=== PATIENT | male | born 1960 | race Caucasian/White ===

== ENCOUNTER 2016-05-22 00:09 | Inpatient (IN) | payer OTHER, MEDICAID ==
--- NOTE | 2016-05-22 13:10 | CPEKG ---
Heart Rate: 86 RR Interval: 698 P-R Interval: 184 QRSD Interval: 112 QT Interval: 404 QTC Interval: 484 P [place]: 38 QRS [place]: 15 T Wave [place]: 19 EKG Severity - ABNORMAL ECG - EKG Impression: SINUS RHYTHM EKG Impression: PAIRED VENTRICULAR PREMATURE COMPLEXES Electronically Signed By: Naveen Leslie 22-May-2016 16:48:54
--- NOTE | 2016-05-22 13:15 | PDCARPN ---
Cardiology Progress Note Chief Complaint: Tikosyn loading Assessment/Plan: Assessment/Plan: The patient has a history of PVC's and NSVT. Prior cath showed nonobstructive CAD with NICMP and EF of 38% by MUGA. Pt is admitted for Tikosyn loading with 500mcg BID. Will monitor on tele and get routine labs and EKG's. 05/22/16 13:57 Subjective: Pt denies any CP or palpitations at this time. Result Diagrams: 05/22/16 13:30 05/22/16 13:30 - Physical Exam Constitutional: WDWN Cardiovascular: regular rate and rhythm Respiratory: clear to auscultate bilat, no crackles, no wheezes Skin: no edema Neurologic: AAOx3 ICD10 Worksheet Patient Problems: Problems Problem Status Diagnosed Diaphoresis Acute Elevated troponin Acute Cellulitis and abscess of buttock Acute MRSA (methicillin resistant Staphylococcus aureus) Acute 10/30/15
[2016-05-22] MEDS: DOFETILIDE 0.25 MG CAP PO SCH ×2 (13:20→22:33)
[2016-05-22] MEDS ORDERED: ACETAMINOPHEN 325 MG TAB PO PRN (13:32)
[2016-05-22 13:56] LABS: % IMMATURE GRANULYOCYTES 0.2 % (0.0-1.1); ABSOLUTE IMMATURE GRANULOCYTES 0.01 10^3/uL (0.00-0.10); ADD DIFF? NO; ADD MORPH? NO; ADD SCAN? NO; ATYPICAL LYMPHOCYTE FLAG 10 (0-99); FRAGMENT RBC FLAG 0 (0-99); HEMATOCRIT 44.2 % (40.0-51.0); HEMOGLOBIN 15.2 g/dL (13.7-17.5); LEFT SHIFT FLG 0 (0-99); LIPEMIA HEMOLYSIS FLAG 90 (0-99); MEAN CELL HEMOGLOBIN 31.3 pg (27.9-34.1); MEAN CELL HEMOGLOBIN CONCENTR. 34.4 g/dL (32.4-36.7); MEAN CELL VOLUME 90.9 fL (81.5-99.8); MEAN PLATELET VOLUME 11.5 fL (8.7-11.7); PLATELET CLUMPS FLAG 0 (0-99); PLATELET COUNT 151 10^3/uL (150-400); RED BLOOD CELL COUNT 4.86 10^6/uL (4.40-6.38); RED CELL DISTRIBUTION WIDTH 13.3 % (11.5-15.2)
[2016-05-22 14:07] LABS: INR 1.17 (0.83-1.16); PROTIME(PATIENT) 14.9 SEC (12.0-15.0)
[2016-05-22 14:16] LABS: ANION GAP 10 mEq/L (8-16); CALCIUM 8.8 mg/dL (8.5-10.4); CARBON DIOXIDE 28 mEq/l (22-31); CHLORIDE 104 mEq/L (97-110); CREATININE 0.8 mg/dL (0.7-1.3); GLOMERULAR FILTRATION RATE > 60; GLUCOSE 109 mg/dL (70-100); MAGNESIUM 1.9 mg/dL (1.6-2.3); POTASSIUM 4.3 mEq/L (3.5-5.2); SODIUM 142 mEq/L (134-144)
[2016-05-22 14:49] LABS: TESTOSTERONE TOTAL 761 ng/dL (71.8-623)
--- NOTE | 2016-05-22 15:38 | CPEKG ---
Heart Rate: 55 RR Interval: 1091 P-R Interval: 184 QRSD Interval: 116 QT Interval: 468 QTC Interval: 448 P [place]: 12 QRS [place]: 13 T Wave [place]: 29 EKG Severity - ABNORMAL ECG - EKG Impression: SINUS RHYTHM EKG Impression: VENTRICULAR PREMATURE COMPLEX EKG Impression: NONSPECIFIC INTRAVENTRICULAR CONDUCTION DELAY Electronically Signed By: Naveen Leslie 22-May-2016 16:48:25
[2016-05-22] MEDS: GABAPENTIN 300 MG CAP PO SCH ×2 (17:12→22:32)
[2016-05-22] MEDS: oxyCODONE IR 15 MG TAB PO PRN (17:12)
[2016-05-22] MEDS: CARVEDILOL 3.125 MG TAB PO SCH (17:13)
[2016-05-22] MEDS: ASPIRIN 81 MG CHEWABLE TAB PO SCH (22:32)
[2016-05-22] MEDS: LOSARTAN POTASSIUM 25 MG TAB PO SCH (22:33)
[2016-05-22] MEDS: tiZANidine HCL 2 MG TAB PO SCH (22:34)
[2016-05-22] MEDS: FLUTICASONE NASAL 120 SPRAYS/16 GM MDI EACHNARE SCH (22:36)
--- NOTE | 2016-05-23 00:47 | CPEKG ---
Heart Rate: 52 RR Interval: 1154 P-R Interval: 212 QRSD Interval: 116 QT Interval: 472 QTC Interval: 439 P [place]: 52 QRS [place]: 3 T Wave [place]: 9 EKG Severity - ABNORMAL ECG - EKG Impression: SINUS RHYTHM EKG Impression: MULTIFORM VENTRICULAR PREMATURE COMPLEXES EKG Impression: FIRST DEGREE AV BLOCK EKG Impression: NONSPECIFIC INTRAVENTRICULAR CONDUCTION DELAY Electronically Signed By: Naveen Leslie 23-May-2016 17:01:26
[2016-05-23 05:12] LABS: ANION GAP 10 mEq/L (8-16); CALCIUM 8.7 mg/dL (8.5-10.4); CARBON DIOXIDE 28 mEq/l (22-31); CHLORIDE 105 mEq/L (97-110); CREATININE 0.8 mg/dL (0.7-1.3); GLOMERULAR FILTRATION RATE > 60; GLUCOSE 77 mg/dL (70-100); MAGNESIUM 1.9 mg/dL (1.6-2.3); POTASSIUM 4.1 mEq/L (3.5-5.2); SODIUM 143 mEq/L (134-144)
[2016-05-23 05:17] LABS: INR 1.19 (0.83-1.16); PROTIME(PATIENT) 15.1 SEC (12.0-15.0)
[2016-05-23] MEDS: DOFETILIDE 0.25 MG CAP PO SCH ×2 (08:58→21:00)
[2016-05-23] MEDS: ATORVASTATIN CALCIUM 10 MG TAB PO SCH (08:59)
[2016-05-23] MEDS: MULTIVITAMINS 1 EACH TAB PO SCH (08:59)
[2016-05-23] MEDS: OMEGA-3 FATTY ACIDS 1,000 MG CAP PO SCH (08:59)
[2016-05-23] MEDS: GABAPENTIN 300 MG CAP PO SCH ×3 (08:59→21:01)
[2016-05-23] MEDS: CARVEDILOL 3.125 MG TAB PO SCH ×2 (09:00→17:19)
[2016-05-23] MEDS ORDERED: PNEUMOCOCCAL 0.5ML VACCINE VIAL IM ONE (09:00)
[2016-05-23] MEDS: DULoxetine 60 MG CAP PO SCH (09:02)
[2016-05-23] MEDS: oxyCODONE IR 15 MG TAB PO PRN (10:10)
--- NOTE | 2016-05-23 11:08 | CPEKG ---
Heart Rate: 57 RR Interval: 1053 P-R Interval: 196 QRSD Interval: 122 QT Interval: 500 QTC Interval: 487 P [place]: 44 QRS [place]: 4 T Wave [place]: 24 EKG Severity - ABNORMAL ECG - EKG Impression: SINUS RHYTHM EKG Impression: NONSPECIFIC INTRAVENTRICULAR CONDUCTION DELAY Electronically Signed By: Naveen Leslie 23-May-2016 17:01:10
--- NOTE | 2016-05-23 11:21 | PDCARPN ---
Cardiology Progress Note Assessment/Plan: Nonischemic Cardiomyopathy- stable without evidence of significant volume overload. Very Frequent PVCs/Non-sustained VT- potentially the cause of his cardiomyopathy ; no NSVT overnight since starting Tikosyn. Has had 3 doses so far. QTc 487 this a.m. Home after 5th dose if no proarrhythmia or QT prolongation. Coronary Artery Disease- continues on ASA, beta ras, and a statin. 05/23/16 11:25 Subjective: No complaints. Objective: Vital Signs (8 Hrs) Temp Pulse Resp BP Pulse Ox 05/23/16 09:35 36.7 C 54 L 14 117/93 H 92 05/23/16 09:00 60 117/93 H 05/23/16 04:00 36.5 C 48 L 18 119/81 H 96 Intake/Output (24 Hrs) 05/22/16 05/23/16 05/24/16 05:59 05:59 05:59 Intake Total 1550 Balance 1550 Intake: Oral (ml) 1550 Other: Weight 128.5 kg Intake Quantity Yes Sufficient Number of Voids Toilet 1 Result Diagrams: 05/22/16 13:30 05/23/16 03:48 - Physical Exam Constitutional: no apparent distress Eyes: anicteric sclera Ears, Nose, Mouth, Throat: moist mucous membranes Cardiovascular: regular rate and rhythm Respiratory: clear to auscultate bilat Gastrointestinal: normoactive bowel sounds, no masses Skin: no rashes, no edema Neurologic: AAOx3 Psychiatric: interactive, not anxious ICD10 Worksheet Patient Problems: Problems Problem Status Diagnosed Diaphoresis Acute Elevated troponin Acute Cellulitis and abscess of buttock Acute MRSA (methicillin resistant Staphylococcus aureus) Acute 10/30/15
[2016-05-23] MEDS ORDERED: fentaNYL 50 MCG PATCH TD SCH (12:00)
[2016-05-23] MEDS ORDERED: fentaNYL 12 MCG PATCH TD SCH (12:00)
[2016-05-23] MEDS: tiZANidine HCL 2 MG TAB PO SCH (21:00)
[2016-05-23] MEDS: LOSARTAN POTASSIUM 25 MG TAB PO SCH (21:01)
[2016-05-23] MEDS: ASPIRIN 81 MG CHEWABLE TAB PO SCH (21:01)
[2016-05-23] MEDS: FLUTICASONE NASAL 120 SPRAYS/16 GM MDI EACHNARE SCH (21:02)
--- NOTE | 2016-05-23 23:21 | CPEKG ---
Heart Rate: 56 RR Interval: 1071 P-R Interval: 196 QRSD Interval: 120 QT Interval: 492 QTC Interval: 475 P [place]: 28 QRS [place]: 7 T Wave [place]: 16 EKG Severity - ABNORMAL ECG - EKG Impression: SINUS RHYTHM EKG Impression: ATRIAL PREMATURE COMPLEX EKG Impression: NONSPECIFIC INTRAVENTRICULAR CONDUCTION DELAY EKG Impression: prolonged QTc interval Electronically Signed By: Naveen Leslie 24-May-2016 17:39:47
[2016-05-24] MEDS ORDERED: DOFETILIDE 0.25 MG CAP PO SCH
[2016-05-24] MEDS: DOFETILIDE 0.25 MG CAP PO SCH (09:07)
[2016-05-24 09:25] VITALS: TEMP 97.7
[2016-05-24] MEDS: ATORVASTATIN CALCIUM 10 MG TAB PO SCH (10:09)
[2016-05-24] MEDS: OMEGA-3 FATTY ACIDS 1,000 MG CAP PO SCH ×2 (10:09→10:10)
[2016-05-24] MEDS: DULoxetine 60 MG CAP PO SCH (10:12)
[2016-05-24] MEDS: GABAPENTIN 300 MG CAP PO SCH (10:12)
[2016-05-24] MEDS: MULTIVITAMINS 1 EACH TAB PO SCH (10:12)
[2016-05-24] MEDS: CARVEDILOL 3.125 MG TAB PO SCH (10:12)
--- NOTE | 2016-05-24 10:38 | GDS ---
[f rep st] DISCHARGE SUMMARY REASON FOR ADMISSION: Frequent PVCs and episodes of nonsustained ventricular tachycardia with a plan for Tikosyn loading. HOSPITAL COURSE: Please refer to Dr. Que Mistry's recent office note, which serves as the admissio n history and physical for this hospital encounter. Briefly, the patient is a 55-year-old male who h as a history of coronary ectasia and non-flow limiting atherosclerosis. He also has a history of non ischemic cardiomyopathy with a recent ejection fraction measured by MUGA at 38%. In the clinic, he w as noted to have frequent PVCs. A 24-hour Holter monitor was obtained which demonstrated over 19,000 PVCs per day, including runs of nonsustained ventricular tachycardia up to 9 beats in length. He wa s seen in consultation by Dr. Mistry, who felt like the patient was a poor candidate for amiodarone giv en his young age. He also felt that an electrophysiology study and ablation procedure was not indica viry because of the multifocal nature of his PVCs. Therefore, he was admitted to undergo Tikosyn load ing. He came into the hospital on May 22. The standard protocol for loading Tikosyn at 500 mc g twice daily with laboratory studies and serial EKGs was instituted. During the patient's time in [facility], he did not demonstrate any runs of nonsustained ventricular tachycardia and had a qualit ative decrease in his PVCs. Today, he is stable and ready for discharge. RECOMMENDATIONS AND DISPOSITION: The patient is discharged in stable condition. Please refer to the medication reconciliation section of the electronic record for details regarding his medications. T he only change to his medication regimen is the addition of his Tikosyn. The patient should continue on a heart healthy diet. Physical exercise is recommended, but he is significantly limited in this capacity secondary to his ankylosing spondylitis. He has followup with me on May 31 at 11:30. DISCHARGE DIAGNOSES: 1. Nonischemic cardiomyopathy. 2. Frequent premature ventricular contractions and runs of nonsustained ventricular tachycardia. /[id number]/MODL
--- NOTE | 2016-05-24 11:06 | CPEKG ---
Heart Rate: 57 RR Interval: 1053 P-R Interval: 184 QRSD Interval: 114 QT Interval: 492 QTC Interval: 479 P [place]: 16 QRS [place]: 29 T Wave [place]: -14 EKG Severity - ABNORMAL ECG - EKG Impression: SINUS RHYTHM EKG Impression: NONSPECIFIC INTRAVENTRICULAR CONDUCTION DELAY EKG Impression: prolonged QTc interval Electronically Signed By: Naveen Leslie 24-May-2016 17:39:18
[2016-05-24 13:31] VITALS: BP 151/87; PULSE 48; RESP 16; O2SAT 94
== END 2016-05-24 14:10 | disposition home or self-care (01) | DRG 309 ==
LOC: INTOOBSV 12:32 → F2W 12:32 → OBSVTOIN 05-23 11:16
PROVIDERS: ADMIT Internal Medicine Cardiovascular Disease; ATTEND Internal Medicine Interventional Cardiology
DX: I47.2 Ventricular tachycardia (principal); I42.9 Cardiomyopathy, unspecified; I25.10 Atherosclerotic heart disease of native coronary artery without angina pectoris; Z23 Encounter for immunization
CPT/HCPCS: G0009; G0103; G0378; G0379

== ENCOUNTER → 2016-06-14 | Outpatient (CLI) | payer OTHER, MEDICAID | LOC: BHFA 15:30 | PROVIDERS: ATTEND Internal Medicine Cardiovascular Disease | DX: I49.3 Ventricular premature depolarization (principal); I25.10 Atherosclerotic heart disease of native coronary artery without angina pectoris; I42.9 Cardiomyopathy, unspecified ==

== ENCOUNTER → 2016-06-26 | Outpatient (CLI) | payer OTHER, MEDICAID | LOC: BHFA 11:00 | PROVIDERS: ATTEND Internal Medicine Cardiovascular Disease | DX: I49.3 Ventricular premature depolarization (principal) ==

== ENCOUNTER 2016-07-24 11:24 | Observation (INO) | payer OTHER, MEDICAID ==
[2016-07-24] MEDS ORDERED: NS 1,000 ML IV ONE (11:35)
[2016-07-24] MEDS ORDERED: MIDAZOLAM 2 MG/2 ML VIAL IVP ONE (11:35)
[2016-07-24] MEDS ORDERED: ISOPROTERENOL HCL 0.2 MG/ML 5ML AMP ONE (11:51)
[2016-07-24] MEDS ORDERED: LIDOCAINE 1% 30 ML SDV ONE (11:51)
[2016-07-24] MEDS ORDERED: HEPARIN 10,000 UNIT/10 ML MDV ONE ×2 (11:51→16:43)
[2016-07-24] MEDS ORDERED: BUPIVACAINE 0.5% 30 ML SDV ONE (11:52)
[2016-07-24] MEDS ORDERED: HEPARIN/DEXTROSE 25,000 UNIT/500 ML BAG IV ONE (12:03)
--- NOTE | 2016-07-24 12:09 | CPEKG ---
Heart Rate: 62 RR Interval: 968 P-R Interval: 188 QRSD Interval: 118 QT Interval: 436 QTC Interval: 443 P [place]: 49 QRS [place]: 12 T Wave [place]: 24 EKG Severity - ABNORMAL ECG - EKG Impression: SINUS RHYTHM EKG Impression: NONSPECIFIC INTRAVENTRICULAR CONDUCTION DELAY Electronically Signed By: Fer Salmeron 25-Jul-2016 16:41:48
[2016-07-24] MEDS ORDERED: DEXAMETHASONE 4 MG/ML VIAL ONE (12:15)
[2016-07-24] MEDS ORDERED: ONDANSETRON 4 MG/2 ML VIAL ONE (12:15)
[2016-07-24] MEDS ORDERED: ROCURONIUM 100 MG/10 ML VIAL ONE ×3 (12:15→14:42)
[2016-07-24] MEDS ORDERED: fentaNYL 100 MCG/2 ML INJ ONE ×2 (12:16→18:58)
[2016-07-24] MEDS ORDERED: PROPOFOL 200 MG/20 ML VIAL ONE (12:16)
[2016-07-24 12:30] LABS: % IMMATURE GRANULYOCYTES 0.4 % (0.0-1.1); ABSOLUTE IMMATURE GRANULOCYTES 0.02 10^3/uL (0.00-0.10); ADD DIFF? NO; ADD MORPH? NO; ADD SCAN? NO; ATYPICAL LYMPHOCYTE FLAG 10 (0-99); FRAGMENT RBC FLAG 0 (0-99); HEMATOCRIT 48.7 % (40.0-51.0); HEMOGLOBIN 16.5 g/dL (13.7-17.5); LEFT SHIFT FLG 0 (0-99); LIPEMIA HEMOLYSIS FLAG 90 (0-99); MEAN CELL HEMOGLOBIN 30.7 pg (27.9-34.1); MEAN CELL HEMOGLOBIN CONCENTR. 33.9 g/dL (32.4-36.7); MEAN CELL VOLUME 90.7 fL (81.5-99.8); MEAN PLATELET VOLUME 11.3 fL (8.7-11.7); PLATELET CLUMPS FLAG 0 (0-99); PLATELET COUNT 148 10^3/uL (150-400); RED BLOOD CELL COUNT 5.37 10^6/uL (4.40-6.38); RED CELL DISTRIBUTION WIDTH 13.2 % (11.5-15.2)
[2016-07-24 12:41] LABS: INR 1.14 (0.83-1.16); PROTIME(PATIENT) 14.5 SEC (12.0-15.0)
[2016-07-24 12:43] LABS: APTT 43.9 SEC (23.0-38.0)
[2016-07-24 12:58] LABS: ANION GAP 10 mEq/L (8-16); CALCIUM 9.1 mg/dL (8.5-10.4); CARBON DIOXIDE 26 mEq/l (22-31); CHLORIDE 107 mEq/L (97-110); CREATININE 0.8 mg/dL (0.7-1.3); GLOMERULAR FILTRATION RATE > 60; GLUCOSE 110 mg/dL (70-100); SODIUM 143 mEq/L (134-144)
[2016-07-24] MEDS ORDERED: IOPAMIDOL (ISOVUE-300) 100 ML BTL IV ONE ×2 (13:54→14:15)
[2016-07-24] MEDS ORDERED: epHEDrine SULFATE 10 MG/ML SYR ONE ×4 (14:23→18:20)
[2016-07-24] MEDS ORDERED: ROCURONIUM 50 MG/5 ML VIAL ONE ×2 (17:27)
[2016-07-24] MEDS ORDERED: SUGAMMADEX SODIUM 200 MG/2 ML VIAL IVP ONE ×2 (18:54)
[2016-07-24] MEDS ORDERED: MIDAZOLAM 2 MG/2 ML VIAL ONE (19:03)
[2016-07-24] MEDS ORDERED: Diclofenac Sodium [Voltaren Gel (*)] 1 APP TP PRN (20:46)
[2016-07-24] MEDS ORDERED: fentaNYL 12 MCG PATCH TD SCH (20:50)
[2016-07-24] MEDS ORDERED: fentaNYL 50 MCG PATCH TD SCH (20:51)
[2016-07-24] MEDS ORDERED: FLUTICASONE NASAL 120 SPRAYS/16 GM MDI EACHNARE SCH (21:00)
[2016-07-24] MEDS ORDERED: ASPIRIN 81 MG CHEWABLE TAB PO SCH (21:00)
[2016-07-24] MEDS ORDERED: LOSARTAN POTASSIUM 25 MG TAB PO SCH (21:00)
[2016-07-24] MEDS ORDERED: ATORVASTATIN CALCIUM 10 MG TAB PO SCH (21:00)
[2016-07-24] MEDS ORDERED: tiZANidine HCL 2 MG TAB PO SCH (21:00)
[2016-07-24] MEDS: DOFETILIDE 0.25 MG CAP PO SCH (23:04)
[2016-07-24] MEDS: CARVEDILOL 3.125 MG TAB PO SCH (23:04)
[2016-07-24] MEDS: GABAPENTIN 300 MG CAP PO SCH (23:09)
[2016-07-25] MEDS ORDERED: ENOXAPARIN 100 MG/ML SYR SC ONE (04:30)
[2016-07-25] MEDS: CARVEDILOL 3.125 MG TAB PO SCH (08:25)
[2016-07-25] MEDS: GABAPENTIN 300 MG CAP PO SCH (08:25)
[2016-07-25] MEDS: DOFETILIDE 0.25 MG CAP PO SCH (08:25)
[2016-07-25] MEDS ORDERED: OMEGA-3 FATTY ACIDS 1,000 MG CAP PO SCH (09:00)
[2016-07-25] MEDS ORDERED: MULTIVITAMINS 1 EACH TAB PO SCH (09:00)
[2016-07-25] MEDS ORDERED: DULoxetine 60 MG CAP PO SCH (09:00)
[2016-07-25] MEDS ORDERED: TESTOSTERONE TP SCH (09:00)
--- NOTE | 2016-07-25 11:49 | CPEKG ---
Heart Rate: 54 RR Interval: 1111 P-R Interval: 184 QRSD Interval: 108 QT Interval: 432 QTC Interval: 410 P [place]: 14 QRS [place]: 14 T Wave [place]: 38 EKG Severity - NORMAL ECG - EKG Impression: SINUS RHYTHM Electronically Signed By: Fer Salmeron 26-Jul-2016 08:59:07
[2016-07-25 12:28] VITALS: TEMP 99
[2016-07-25 12:33] VITALS: RESP 15
--- NOTE | 2016-07-25 13:35 | ECHO ---
[id number] + + [address] : : [place] [address] : : [phone] + + Adult Echocardiographic Report + -------+ :Name: HAIDER KIRKLAND MStudy Date: 07/25/2016 09:51 AM : : Hospital Admission Number: [id number] Locati on: 246: :: 1960 Gender: Male Height: 76 in : :Age: 55 yrs Race: WH Weight: 289 lb : :Reason For Study: Eval LV Fx : : BSA: 2.6 meter s2 : :History: Post EP : + -------+ MMode/2D Measurements \T\ Calculations IVSd: 1.4 cm LVIDd: 5.5 cm FS: 29.5 % Ao root diam: LVPWd: 1.4 cm LVIDs: 3.9 cm EDV(Teich): 4.3 cm 149.0 ml ACS: 2.2 cm ESV(Teich): 65.8 ml EF(Teich): 55.9 % LVLd ap4: 9.8 cm SV(MOD-sp4): EDV(MOD-sp4): 91.0 ml 193.0 ml LVLs ap4: 8.9 cm ESV(MOD-sp4): 102.0 ml EF(MOD-sp4): 47.2 % Normal Measurement Values: + + :LVIDd (3.5-5.7cm) IVSd (0.6-1.1cm) LVPWd (0.6-1.1cm) Aortic Root (2.0-3.7cm)Left Atrium (1.5-4.0cm): :LV Vol(d) (76-115ml) LV Vol(s) (29-48ml) Ejec Fraction (50-65%)PV Adria (0.6- 1.2m/s) TV Adria (0.4-1.0m/s) : :MV E Adria (0.8-1.0m/s)MV A Adria (0.3-1.0m/s)LVOT Adria (0.7-1.2m/s) Asc Ao Adria ( 0.9-1.8m/s) : + + Doppler Measurements \T\ Calculations MV E max adria: 71.6 cm/sec Ao V2 max: 150.7 cm/sec LV V1 max: 73.1 cm/sec MV A max adria: 38.5 cm/sec Ao max P.1 mmHg LV V1 max P.1 mmHg MV E/A: 1.9 Left Ventricle The left ventricle is normal in size. There is normal left ventricular wall thickness. There is Doppler evidence for diastolic dysfunction. There is basilar to mid inferolateral hypokinesis. Left ventricular systolic function is low normal. Right Ventricle The right ventricle is normal in size and function. Atria The left atrial size is normal. Right atrial size is normal. Mitral Valve The mitral valve is normal in structure and function. There is no mitral valve stenosis. There is no mitral regurgitation noted. Tricuspid Valve Normal tricuspid valve. There is trace tricuspid regurgitation. Aortic Valve The aortic valve is normal in structure and function. There is no aortic stenosis. There is no aortic insufficiency. Pulmonic Valve The pulmonic valve is normal in structure and function. There is no pulmonic valvular regurgitation. Great Vessels The aortic root is normal size. Pericardium/Pleural There is no pericardial effusion. Conclusion A complete two-dimensional transthoracic echocardiogram was performed (2D, M-mode, Doppler and color flow Doppler). There is Doppler evidence for diastolic dysfunction. There is basilar to mid inferolateral hypokinesis. The left atrial size is normal. There is trace tricuspid regurgitation. The aortic valve is normal in structure and function. There is no pericardial effusion. Left ventricular systolic function is low normal. Final Reading Physician: Nicolas Pollock, [place] signed on 07/25/2016 01:34 PM Ordering Physician: Que Mistry Performed By: Thony Ortiz, RDCS
--- NOTE | 2016-07-25 13:44 | GDS ---
[f rep st] DISCHARGE SUMMARY DISCHARGE DIAGNOSES: 1. Frequent premature ventricular contractions, status post premature ventricular contraction ablat ion where multiple foci were ablated. 2. Nonischemic cardiomyopathy with an ejection fraction of 38% by multiple-gated acquisition scan, possibly related to high premature ventricular contraction burden. 3. Asp-zntw-niubdzco coronary artery disease. HOSPITAL COURSE: For detailed H and P, please see prior dictation. Briefly, the patient is a 55-ye ar-old male with a history of nonischemic cardiomyopathy with ejection fraction of 38% by MUGA. He also has frequent PVCs, which may be the cause for his cardiomyopathy. He had a trial of Tikosyn bu t unfortunately, this had minimal impact on his PVC burden. Ultimately, the decision was made to pr oceed with EP study and ablation, which was performed by Dr. Que Mistry on 07/24/2016. The proced ure was uncomplicated. Multiple different foci for his PVCs were ablated. The following morning, t he patient denied any chest discomfort or palpitations. He was monitored on telemetry and had rare PVCs with 1 run of nonsustained ventricular tachycardia of 6 beats. This was at a rate of approxima tely 160-170 beats per minute. His EKG showed sinus bradycardia at a rate of [address] -T wave changes. There were no PVCs on his EKG. The preliminary results of his echo showed depress ed ejection fraction of 45% to 50% without any evidence of pericardial effusion. PHYSICAL EXAMINATION: GENERAL: Patient appears in no acute distress. VITALS: Blood pressure 131/ 82, heart rate 56, oxygen saturation of 95% on room air, afebrile. NECK: No carotid bruits or JVD present. LUNGS: Clear to auscultation. No wheezes, rhonchi, or crackles auscultated. CARDIAC: R egular rate and rhythm without any murmurs, rubs, or gallops appreciated. EXTREMITIES: Groin where access was obtained for the EP study and ablation is clean and intact without any evidence of hemat soledad or infection. He does have some ecchymosis. DISCHARGE MEDICATIONS: His Tikosyn has been discontinued, and he will begin Eliquis 5 mg b.i.d. for 4-6 weeks. He will continue aspirin 81 mg daily, Lipitor 10 mg daily, Coreg 3.125 mg b.i.d., Celeb avni 200 mg daily, Voltaren gel p.r.n., Cymbalta 60 mg daily, deicettu75 mcg patch q.2 days, fentanyl 50 mcg patch transdermal q.2 days, Flonase p.r.n., Neurontin 300 mg daily and 600 mg twice a day, l osartan 25 mg at bedtime, multivitamin daily, fish oil 1000 mg daily, oxycodone IR 30 mg p.o. q.4-6 hours p.r.n., testosterone daily, and Zanaflex 4 mg at bedtime. PLAN: The patient is currently stable and ready for discharge home. He has been given groin precau tions. He will need to call our office to schedule followup with Dr. Que Mistry in 1 month. /[id number]/MODL
[2016-07-25 14:45] VITALS: BP 138/59; PULSE 61; O2SAT 96
[2016-07-25] MEDS ORDERED: GABAPENTIN 300 MG CAP PO SCH (15:00)
--- NOTE | 2016-07-26 10:00 | EPPROC ---
Electrophysiology Procedure Note: ELECTROPHYSIOLOGIC STUDY AND CATHETER MEDIATED ABLATION OF PREMATURE VENTRICULAR BEATS ORIGINATING IN THE RIGHT VENTRICULAR OUTFLOW TRACT: Procedures performed: [id number] EP evaluation with RA/RV/LA pace/record, with arrhythmia induction [id number] EP evaluation with RA/RV pace record, insert/reposition catheter, with arrhythmia induction [id number] Intracardiac catheter ablation, VT arrhythmogenic focus Fluoroscopy INDICATION: Recurrent PVC, not controlled with BB or CCB or Tikosyn. Multiple morphologies. The patient arrived in the Electrophysiology Laboratory in the fasting state. The right clavicular region, right groin, and left groin area were prepped and draped in the usual sterile manner. Appropriate non-invasive blood pressure, pulse oximetry and end-tidal CO2 monitoring was established. Anesthesiologist administered propofol sedation. All catheters were placed percutaneously using the modified Seldinger technique , and advanced into position under fluoroscopic guidance. One decapolar catheter was palced in the RV via RFV. One # 8 Fr sheath was placed in the RFA for retrograde aortic access. Heparin was administered to keep ACT > 250 seconds. Programmed stimulation was performed from the right atrium, right ventricle and CS (left atrium). The patient arrived to the electrophysiology laboratory in normal sinus rhythm. With Isupril infusion when the rate was between 90 to 105bpm, PVCs were noted. There were PVCs which were positive in II, III and aVF with positive concordance in precordial leads. There were other PVCs which were positive in II, III and aVF, negative in V1-V4 and then positive in V5 and V6. A third morphology was that which were negative in II, II. PVC +1 and 2 were targeted for ablation. A 4 mm Nav[employer] ablation catheter with a magnetic sensor for the Carto 3D electroanatomic mapping system was used for mapping. Mapping (during PVC) of the right ventricular outflow tract, left ventricular outflow tract and LV base was performed. For PVC1, we observed an area in the LV area about 1 o' clock position. Multiple lesions were given. AFter this we targeted PVC #2. Mapping demonstrated PVCs comign from the RVOT free wall. Pacemapping obtained 96% match. Early signals about 35ms prior to onset of QRS were noted. Ablation at 20 W showed runs of VT which stopped once RF was turned off. Multiple lesions were given. Observation for 45 minutes after the application of radiofrequency current was performed during isoproterenol administration at graded doses upto 4 mcg/min, and following discontinuation of isoproterenol. Patient was recovered from anesthesia. PVC #3 were noted. No spontaneous ventricular extra systoles of the primary pattern seen prior to ablation were induced spontaneously or with ventricular burst pacing. The catheters were removed. The patient was transferred to the cardiovascular holding area in stable condition. Vascular access sheaths were removed in the holding area. There were no apparent complications. Results: * PVCs of three different morphologies noted. * PVCs were induced with Isupril when the HR increased to 90 to 105bpm. * Two morphologies targeted, one in the LV MV area in 1 o'clock position. Another in the RVOT free wall region. CONCLUSIONS: * Premature ventricular beats as mentioned above * Successful catheter mediated ablation of the premature ventricular beats. * No apparent complications. Patient Problems: Problems Problem Status Onset Cellulitis and abscess of buttock Acute Diaphoresis Acute Elevated troponin Acute MRSA (methicillin resistant Staphylococcus aureus) Acute 10/30/15
== END 2016-07-25 15:30 | disposition home or self-care (01) ==
LOC: FCATH 11:24 → F2W 15:58 → F2N 18:51
PROVIDERS: ADMIT Internal Medicine Cardiovascular Disease; ATTEND Internal Medicine Cardiovascular Disease
PROC: 025K3ZZ Destruction of Right Ventricle, Percutaneous Approach (ICD-10-PCS; principal; 2016-07-24)
PROC: 025L3ZZ Destruction of Left Ventricle, Percutaneous Approach (ICD-10-PCS; principal; 2016-07-24)
DX: I49.3 Ventricular premature depolarization (principal); I42.9 Cardiomyopathy, unspecified; I25.10 Atherosclerotic heart disease of native coronary artery without angina pectoris
CPT/HCPCS: 93005; 93306; 93623; 93654; C1730; C1732; J1100; J1644; J1650; J2250; J2405; J2704; J3010; Q9967

== ENCOUNTER → 2016-11-22 | Outpatient (CLI) | payer OTHER, MEDICAID | LOC: BHFA 13:30 | PROVIDERS: ATTEND Internal Medicine | DX: I49.3 Ventricular premature depolarization (principal) ==

== ENCOUNTER → 2017-08-27 | Outpatient (CLI) | payer OTHER, MEDICAID | LOC: FIMAGING 12:25 | PROVIDERS: ATTEND Orthopaedic Surgery | DX: M17.12 Unilateral primary osteoarthritis, left knee (principal); M25.462 Effusion, left knee ==

== ENCOUNTER 2017-09-10 09:33 | Inpatient (IN) | payer MEDICAID, OTHER ==
--- NOTE | 2017-09-10 07:12 | PDHPUP ---
History & Physical Update H&P update statement: This history and physical update is based on an assessment of the patient which was completed after admission or registration (within 24 hours), but prior to the surgery/procedure. H&P update: H&P reviewed & patient examined, no change in patient's condition since H&P completed
[~2017-09-10 09:33] MED LIST: ROPIVACAINE 0.2% 80 MG, EPINEPHrine 0.2 MG, KETOROLAC TROMETHAMINE 30 MG in SYRINGE 0 ML IU ONE; TRANEXAMIC ACID 3,000 MG in NS (SYRINGE) 50 ML IRR ONE; TRANEXAMIC ACID 3,000 MG/50 ML BAG IRR ONE; VANCOMYCIN 2 GM in D5W 500 ML IV ONE; VANCOMYCIN PHARMACY TO DOSE MISC ONE
[2017-09-10] MEDS ORDERED: ceFAZolin 2 GM/SWFI 2 GM/20 ML SYR IVP ONE (09:45)
[2017-09-10] MEDS ORDERED: DEXAMETHASONE 4 MG/ML VIAL IVP ONE (09:45)
[2017-09-10] MEDS ORDERED: ACETAMINOPHEN 325 MG TAB PO ONE (09:45)
[2017-09-10] MEDS ORDERED: FAMOTIDINE 20 MG TAB PO ONE (09:45)
[2017-09-10] MEDS ORDERED: LIDOCAINE 1% 2 ML INJ ID PRN (09:46)
[2017-09-10] MEDS ORDERED: LR 1,000 ML IV ONE (09:46)
--- NOTE | 2017-09-10 10:12 | PDANEPAE ---
ANE History of Present Illness 57 year old male with PMHx of ankylosing spondilytis, HTN, cardiac ablation ( for PVCs), HUNTER ad previous lumbar spine fusion presents for left total knee arthroplasty. ANE Past Medical History - Cardiovascular History Hx Hypertension: Yes Hx Arrhythmias: No Hx Chest Pain: No Hx Coronary Artery / Peripheral Vascular Disease: No Hx CHF / Valvular Disease: No Hx Palpitations: No Cardiovascular History Comment: Ablation for PVC's ~ 17 via [facility]. continues to have PVCs-less. Dr Darcy Mistry. - Pulmonary History Hx COPD: No Hx Asthma/Reactive Airway Disease: No Hx Recent Upper Respiratory Infection: No Hx Oxygen in Use at Home: No Hx Sleep Apnea: Yes Sleep Apnea Screening Result - Last Documented: Positive Pulmonary History Comment: HUNTER w/CPAP - Neurologic History Hx Cerebrovascular Accident: No Hx Seizures: No Hx Dementia: No - Endocrine History Hx Diabetes: No Hypothyroid: No Hyperthyroid: No Obesity: mild - Renal History Hx Renal Disorders: No - Liver History Hx Hepatic Disorders: No - Neurological & Psychiatric Hx Hx Neurological and Psychiatric Disorders: Yes Neurological / Psychiatric History Comment: low back pain due to ankylosing spindylitis- SI joint pain-Lower R. - Cancer History Hx Cancer: No - Congenital Disorder History Hx Congenital Disorders: No - GI History Hx Gastrointestinal Disorders: No Gastrointestinal History Comment: prone to constipation w/opiods - Other Health History Other Health History: OA,RA, Ankylosing spondylitis-affects low back, knees, wrists. iridis-well controlled. - Chronic Pain History Chronic Pain: Yes - Surgical History Prior Surgeries: L5/S1 lumbar fusion '10. bilat knee scopes ANE Review of Systems Review of systems is: negative Review of Systems: - Exercise capacity Exercise capacity: >=4 METS METS (RN): 4 METS ANE Patient History - Allergies Allergies/Adverse Reactions: aluminum [Aluminum] Allergy (Intermediate, Verified 09/10/17 09:59) Other-Enter Comments latex [Latex] Allergy (Mild, Verified 09/10/17 09:59) Itching Sulfa (Sulfonamide Antibiotics) Allergy (Unknown, Verified 09/10/17 09:59) Unknown AMMONIA Allergy (Intermediate, Uncoded 09/10/17 09:59) Other-Enter Comments DUST Allergy (Intermediate, Uncoded 09/10/17 09:59) Other-Enter Comments - Home Medications Home medications: home medication list seen and reviewed Home Medications: Fluticasone Nasal [Flonase Nasal [place]] 1 sprays EACHNARE HS 12/05/15 [Last Taken 07/23/16] Gabapentin [Neurontin 300 MG (*)] 300 mg PO DAILY@15 12/05/15 [Last Taken ] Testosterone [Androgel] 1 lisa TP DAILY 12/05/15 [Last Taken 07/23/16] fentaNYL [Duragesic 12 MCG Patch (*)] 12 mcg TD Q2D@12 12/05/15 [Last Taken ] Aspirin [Aspirin 81mg (*)] 81 mg PO HS 05/22/16 [Last Taken 07/23/16] Atorvastatin Calcium [Lipitor 10 mg (*)] 10 mg PO HS 05/22/16 [Last Taken ] DULoxetine [Cymbalta 60 MG (*)] 60 mg PO DAILY 05/22/16 [Last Taken 07/23/16] Gabapentin [Neurontin 300 MG (*)] 600 mg PO BID 05/22/16 [Last Taken 07/23/16 21 :00] Multivitamins [Multivitamin (*)] 1 each PO DAILY 05/22/16 [Last Taken 07/23/16] celeCOXIB [Celebrex (*)] 200 mg PO DAILY 05/22/16 [Last Taken 07/23/16] tiZANidine HCL [Zanaflex 2MG (*)] 4 mg PO HS 05/22/16 [Last Taken 07/23/16] Cosentyx Pen 1 ea SQ Q30D 08/26/17 [Last Taken Unknown] Metoprolol Tartrate [Lopressor 50 mg (*)] 50 mg PO BID 08/26/17 [Last Taken Unknown] Docusate Sodium [Colace 100 MG (*)] 100 mg PO DAILY PRN 08/27/17 [Last Taken Unknown] Herbals/Supplements -Info Only 1 ea PO DAILY 08/27/17 [Last Taken Unknown] Lidocaine 5% [Lidocaine 5% Oint] 1 lisa TP DAILY PRN 08/27/17 [Last Taken Unknown ] Losartan Potassium [Cozaar 50 mg (*)] 50 mg PO DAILY 08/27/17 [Last Taken Unknown] Melatonin 10 mg PO DAILY 08/27/17 [Last Taken 04/18/18] clonIDINE [Catapres (*)] 0.1 mg PO DAILY 08/27/17 [Last Taken Unknown] fentaNYL [Duragesic 25 MCG Patch (*)] 25 mcg TD Q2D@12 08/27/17 [Last Taken Unknown] oxyCODONE IR [Oxycodone Ir (*)] 20 mg PO Q4HRS PRN 08/27/17 [Last Taken Unknown] - NPO status NPO Status: no food or drink >8 hours - Anes Hx Anes Hx: no prior problems - Smoking Hx Smoking Status: Never smoked Marijuana use: No - Alcohol Use Alcohol Use: Rarely - Family Anes Hx Family Anes Hx: neg - N/A ANE Labs/Vital Signs - Vital Signs Vital Signs: reviewed preoperatively; see RN documention for details Height: 193.04 cm Weight: 136.078 kg ANE Physical Exam - Airway Neck exam: FROM Mallampati Score: Class 2 Mouth exam: normal dental/mouth exam, franks - Pulmonary Pulmonary: no respiratory distress - Cardiovascular Cardiovascular: regular rate and rhythym - ASA Status ASA Status: III ANE Anesthesia Plan Anesthesia Plan: general endotracheal anesthesia Regional Anesthesia: single shot NB, adductor canal FNB, POPC/PSR Total IV Anesthesia: No
[2017-09-10] MEDS ORDERED: MIDAZOLAM 2 MG/2 ML VIAL IVP ONE (10:52)
[2017-09-10] MEDS ORDERED: MIDAZOLAM 2 MG/2 ML VIAL ONE (10:52)
[2017-09-10] MEDS ORDERED: PROPOFOL/EMULSION 500 MG/50 ML BOTTLE IV ONE (10:56)
[2017-09-10] MEDS ORDERED: fentaNYL 100 MCG/2 ML INJ ONE ×3 (10:57→13:25)
[2017-09-10] MEDS ORDERED: LIDOCAINE 2% 5 ML SDV ONE (10:57)
[2017-09-10] MEDS ORDERED: ROCURONIUM 50 MG/5 ML VIAL ONE (10:57)
[2017-09-10] MEDS ORDERED: ROPIVACAINE HCL 150 MG/30 ML INJ ONE (11:41)
[2017-09-10] MEDS ORDERED: ONDANSETRON 4 MG/2 ML VIAL ONE (11:41)
[2017-09-10] MEDS ORDERED: DEXAMETHASONE 4 MG/ML VIAL ONE (11:41)
[2017-09-10] MEDS ORDERED: oxyCODONE IR 5 MG TAB PO PRN (11:43)
[2017-09-10] MEDS ORDERED: NALOXONE HCL 0.4 MG/ML INJ IVP PRN (11:43)
[2017-09-10] MEDS ORDERED: ACETAMINOPHEN 500 MG TAB PO PRN (11:43)
[2017-09-10] MEDS ORDERED: PROMETHAZINE HCL 25 MG/ML INJ IVP PRN ×2 (11:43→12:45)
[2017-09-10] MEDS ORDERED: LR 500 ML IV PRN (11:43)
[2017-09-10] MEDS ORDERED: DIAZEPAM 5 MG/ML 1 ML SYR IVP PRN (11:43)
[2017-09-10] MEDS ORDERED: HYDROmorphONE/DILAUDID 2 MG/ML INJ IVP PRN (11:43)
[2017-09-10] MEDS ORDERED: fentaNYL 100 MCG/2 ML INJ IVP PRN (11:43)
[2017-09-10] MEDS ORDERED: DEXAMETHASONE 4 MG/ML VIAL IVP PRN (11:43)
[2017-09-10] MEDS ORDERED: HYDROmorphONE/DILAUDID 2 MG/ML INJ ONE ×2 (11:46→13:25)
[2017-09-10] MEDS ORDERED: SUGAMMADEX SODIUM 200 MG/2 ML VIAL IVP ONE (12:32)
[2017-09-10] MEDS ORDERED: DIPHENOXYLATE/ATROPINE LOMOTIL 1 TAB PO PRN (12:45)
[2017-09-10] MEDS ORDERED: HYDROmorphONE/DILAUDID 4 MG TAB PO PRN (12:45)
[2017-09-10] MEDS ORDERED: ONDANSETRON DISINTEGRATING 4 MG TAB PO PRN (12:45)
[2017-09-10] MEDS ORDERED: MAGNESIUM HYDROXIDE 30 ML UDCUP PO PRN (12:45)
[2017-09-10] MEDS ORDERED: BISACODYL 10 MG SUPP PR PRN (12:45)
[2017-09-10] MEDS ORDERED: CYCLOBENZAPRINE 10 MG TAB PO PRN (12:45)
[2017-09-10] MEDS ORDERED: diphenhydrAMINE 25 MG CAP PO PRN (12:45)
[2017-09-10] MEDS ORDERED: METOCLOPRAMIDE 10 MG/2 ML VIAL IVP PRN (12:45)
[2017-09-10] MEDS ORDERED: POLYETHYLENE GLYCOL 3350 17 GM PKT PO PRN (12:45)
[2017-09-10] MEDS ORDERED: TEMAZEPAM 15 MG CAP PO PRN (12:45)
[2017-09-10] MEDS ORDERED: LACTULOSE 20 GM/30 ML UDCUP PO PRN (12:45)
[2017-09-10] MEDS ORDERED: PROMETHAZINE HCL 25 MG SUPPR PR PRN (12:45)
[2017-09-10] MEDS ORDERED: ONDANSETRON 4 MG/2 ML VIAL IVP PRN (12:45)
--- NOTE | 2017-09-10 12:51 | POSTOPPROG ---
Post Op Note Date of Operation: 09/10/17 Surgeon: Leda Flowers Immigration Manager: jeovanny flowers Anesthesiologist: dr. watson Anesthesia: GET(General Endotracheal), Other (Specify) (adductor canal block) Pre-op Diagnosis: left knee OA Post-op Diagnosis: same Indication: left knee pain Procedure: L TKA robot assisted Findings: severe knee OA and osteophytes Inf/Abcess present in the surg proc area at time of surgery?: No EBL: [id number]
[2017-09-10] MEDS ORDERED: LR 1,000 ML IV SCH (13:00)
--- NOTE | 2017-09-10 13:58 | POSTANESTH ---
Post Anesthetic Evaluation Cardiovascular Status: Normal, Stable, Similar to Pre-Op Cond Respiratory Status: Normal, Stable, Similar to Pre-op Cond. Level of Consciousness/Mental Status: Can Participate in Eval, Alert and Oriented Pain Control: Adequate, Prn Tx Ordered Nausea/Vomiting Control: Adequate, Prn Tx Ordered Complications Possibly Related to Anesthesia: None Noted
[2017-09-10] MEDS ORDERED: ceFAZolin 2 GM/DEXTROSE 100 ML IV SCH (14:00)
[2017-09-10] MEDS ORDERED: LOSARTAN POTASSIUM 50 MG TAB PO ONE (15:00)
--- NOTE | 2017-09-10 15:45 | PDMN ---
Medical Necessity Medical necessity: Pt meets IP criteria per PA; est los >2 mn s/p L TKA; admit for further monitoring, pain management, IVFs & therapies; hx AFIB & chronic pain; per H&P & order 09/10/17
[2017-09-10] MEDS: GABAPENTIN 300 MG CAP PO SCH ×2 (16:15→20:31)
--- NOTE | 2017-09-10 17:28 | GOP ---
[f rep st] OPERATIVE REPORT DATE OF OPERATION: 09/10/2017 SURGEON: Marck Stevens MD GAS OPERATION MANAGER: Sil Stevens, VANIA. ANESTHESIA: Spinal. PREOPERATIVE DIAGNOSIS: Left knee osteoarthritis. POSTOPERATIVE DIAGNOSIS: Left knee osteoarthritis. PROCEDURE PERFORMED: Left total knee arthroplasty with computer navigation, robotic assist. FINDINGS: ESTIMATED BLOOD LOSS: 100 cc. INDICATIONS: The patient is a 57-year-old male with severe and progressive pain and deformity of the left knee unresponsive to conservative care. The risks and benefits of surgical intervention were e xplained in detail. DESCRIPTION OF PROCEDURE: The patient was brought to the operative room and placed on the table in t he supine position. Spinal anesthesia was induced without difficulty. A pneumatic tourniquet was lisa lied about the left proximal thigh, and the leg was prepped and draped in a sterile fashion. The leg tse was applied. After exsanguination by elevation the tourniquet was inflated to 275 mmHg. Incision was made anterior medial from the tibial tuberosity to a point 2 cm proximal to the superior pole of the patella. Medial parapatellar arthrotomy was carried out from the superior pole of the p atella and posteriorly in line with the fibers of the Type II VMO. The medial collateral ligament wa s elevated and the infrapatellar fat pad was resected. The patella was everted and the articular surface was excised. A 40 mm patellar button was placed. Attention was turned first to the distal aspect of the femur. After exposure of the femur, 2 half pi ns were placed for fixation of the femoral array. In a similar fashion, 2 pins were placed anteromed ial on the tibia for fixation of the tibial array. External land marking and registration of the hip center was performed without difficulty. Internal femoral and tibial registration was carried out w ithout difficulty and the femoral and tibial checkpoints were placed and verified for accuracy. Attention was turned to the femur. The foot print for the size 6 femoral component was cut with the saw using the [employer] robotic system and verified for accuracy against the CT based plan. In a similar f ashion, the saw was used to cut the footprint for the size 7 tibial component using the [employer] system an d verified for accuracy against the CT based plan. The tibial articular surface was excised without difficulty, followed by the intercondylar box cut. The knee was extended and the remnants of the medial and lateral meniscus were excised. The posterio r capsule was injected with ropivacaine, epinephrine and Toradol. A size 7 tibial tray was positione d. Trial reduction was then carried out. There was excellent range of motion, alignment, and stabil ity using the 7 x 11 mm polyethylene. All trials were then removed. The joint was thoroughly irrigated and carefully dried. The press-fit components were implanted. The permanent 11 mm polyethylene X3 was placed without difficulty. The tourniquet was deflated and all bleeders were coagulated. The wound was thoroughly irrigated and closed using interrupted sutures of 2-0 Vicryl for the joint capsule. The subcu was closed with 3-0 Vicryl and the skin with 4-0 Monocryl. Dermabond and Steri-Strips were applied followed by a compre ssive dressing. The patient was then moved from the operating room to the recovery room in good cond ition, having tolerated the procedure well. PATHOLOGY: Severe medial and patellofemoral osteoarthritis. /[id number]/MODL
[2017-09-10] MEDS: ACETAMINOPHEN 325 MG TAB PO SCH (18:48)
[2017-09-10] MEDS: ceFAZolin 2 GM/SWFI 2 GM/20 ML SYR IVP SCH (19:13)
[2017-09-10] MEDS: SENNOSIDES/DOCUSATE SODIUM TAB PO SCH (20:30)
[2017-09-10] MEDS: ATORVASTATIN CALCIUM 10 MG TAB PO SCH (20:31)
[2017-09-10] MEDS: FAMOTIDINE 20 MG TAB PO SCH (20:31)
[2017-09-10] MEDS: ASPIRIN 81 MG CHEWABLE TAB PO SCH (20:31)
[2017-09-10] MEDS: tiZANidine HCL 2 MG TAB PO SCH (20:31)
[2017-09-10] MEDS: METOPROLOL TARTRATE 50 MG TAB PO SCH (20:31)
[2017-09-10] MEDS ORDERED: NON-FORMULARY NEW DRUG (Fluticasone Nasal [Flonase Nasal Spray] 1 SPRAYS) EACHNARE SCH (21:00)
[2017-09-10] MEDS: FLUTICASONE NASAL 120 SPRAYS/16 GM MDI EACHNARE SCH (21:52)
[2017-09-10] MEDS ORDERED: VANCOMYCIN HCL/NORMAL SALINE 250 ML IV ONE (23:00)
[2017-09-11] MEDS: ACETAMINOPHEN 325 MG TAB PO SCH ×4 (00:04→17:34)
[2017-09-11] MEDS: oxyCODONE IR 5 MG TAB PO PRN ×4 (00:04→20:09)
[2017-09-11] MEDS: ceFAZolin 2 GM/SWFI 2 GM/20 ML SYR IVP SCH (03:55)
--- NOTE | 2017-09-11 08:26 | SOAPPROG ---
SOAP Progress Note Assessment/Plan: Assessment: Patient is doing well POD 1 s/p L TKA Pain management: pain is well controlled on oral pain meds. VTE ppx: recommend aspirin 81 mg BID for 4 weeks, cont WILLEM and SCDs Anemia: level is expected initially postop. Asymptomatic. Continue to monitor D/c planning: d/c to home tomorrow pending release from PT, pain level management, patient and family's comfort levels Plan: 09/11/17 08:25 Subjective: Arnol is doing well, denies SOB, chest pain and N/V. Objective: Vital Signs Temp Pulse Resp BP Pulse Ox 36.7 C 55 L 16 120/72 95 09/11/17 07:46 09/11/17 07:46 09/11/17 07:46 09/11/17 07:46 09/11/17 07:46 Laboratory Results 09/11/17 04:43 09/11/17 04:43 09/10/17 09/11/17 09/12/17 05:59 05:59 05:59 Intake Total 2760 Output Total 1775 Balance 985 LLE: incision dressing is clean and dry, NVI, +pf/df ICD10 Worksheet Patient Problems: Problems Problem Status Onset Cellulitis and abscess of buttock Acute Diaphoresis Acute Elevated troponin Acute MRSA (methicillin resistant Staphylococcus aureus) Acute 10/30/15
[2017-09-11] MEDS: SENNOSIDES/DOCUSATE SODIUM TAB PO SCH ×2 (08:40→20:08)
[2017-09-11] MEDS: FAMOTIDINE 20 MG TAB PO SCH ×2 (08:40→20:08)
[2017-09-11] MEDS: LOSARTAN POTASSIUM 50 MG TAB PO SCH (08:40)
[2017-09-11] MEDS: METOPROLOL TARTRATE 50 MG TAB PO SCH ×2 (08:40→20:07)
[2017-09-11] MEDS: GABAPENTIN 300 MG CAP PO SCH ×3 (08:40→20:08)
[2017-09-11] MEDS: ASPIRIN 81 MG CHEWABLE TAB PO SCH ×2 (08:41→20:09)
[2017-09-11] MEDS: DULoxetine 60 MG CAP PO SCH (08:41)
--- NOTE | 2017-09-11 11:08 | ASMTCMCOM ---
CM Note CM Note Notes: Pt s/p L TKA. PT rec home/outpatient. Spoke w pt and dghtr Rajendra, pt declines meals on wheels and no CM d/c needs identified. Pt has DME. Anticipate pt will d/c when medically stable. CM available for changes/needs. Date Signed: 09/11/2017 11:08 AM Electronically Signed By:PENNIE Saleem
[2017-09-11] MEDS ORDERED: fentaNYL 25 MCG PATCH TD SCH (12:00)
[2017-09-11] MEDS: tiZANidine HCL 2 MG TAB PO SCH (20:07)
[2017-09-11] MEDS: ATORVASTATIN CALCIUM 10 MG TAB PO SCH (20:08)
[2017-09-11] MEDS: FLUTICASONE NASAL 120 SPRAYS/16 GM MDI EACHNARE SCH (21:31)
[2017-09-12] MEDS: ACETAMINOPHEN 325 MG TAB PO SCH ×3 (02:04→12:56)
[2017-09-12] MEDS: oxyCODONE IR 5 MG TAB PO PRN ×3 (02:04→12:56)
[2017-09-12 07:30] VITALS: BP 131/92
[2017-09-12] MEDS: DULoxetine 60 MG CAP PO SCH (08:35)
[2017-09-12] MEDS: ASPIRIN 81 MG CHEWABLE TAB PO SCH (08:35)
[2017-09-12] MEDS: LOSARTAN POTASSIUM 50 MG TAB PO SCH (08:35)
[2017-09-12] MEDS: SENNOSIDES/DOCUSATE SODIUM TAB PO SCH (08:35)
[2017-09-12] MEDS: METOPROLOL TARTRATE 50 MG TAB PO SCH (08:35)
[2017-09-12] MEDS: GABAPENTIN 300 MG CAP PO SCH (08:36)
[2017-09-12] MEDS: FAMOTIDINE 20 MG TAB PO SCH (08:36)
[2017-09-12] MEDS ORDERED: fentaNYL 12 MCG PATCH TD SCH (09:00)
[2017-09-12] MEDS ORDERED: fentaNYL 25 MCG PATCH TD SCH (09:00)
--- NOTE | 2017-09-12 10:48 | SOAPPROG ---
SOAP Progress Note Assessment/Plan: Assessment: Patient is doing well POD 2 s/p L TKA Pain management: pain is well controlled on oral pain meds. patient has not taken dilaudid which is the additional pain medication ordered above and beyond his normal baseline narcotic pain meds prior to surgery.. VTE ppx: recommend aspirin 81 mg BID for 4 weeks, cont WILLEM and SCDs Anemia: level is expected initially postop. Asymptomatic. Continue to monitor D/c planning: d/c to home today Plan: 09/11/17 08:25 09/12/17 10:46 Subjective: Goyo is doing well, moderate increase in pain, but patient states he does not want to take dilaudid, denies chest pain Objective: Vital Signs Temp Pulse Resp BP Pulse Ox 36.7 C 73 16 131/92 H 94 09/12/17 07:29 09/12/17 08:35 09/12/17 07:29 09/12/17 08:35 09/12/17 07:29 Laboratory Results 09/12/17 04:29 09/11/17 04:43 09/11/17 09/12/17 09/13/17 05:59 05:59 05:59 Intake Total 2760 1300 500 Output Total 1775 1400 Balance 985 -100 500 LLE: incision dressing is clean and dry, NVI, +pf/df ICD10 Worksheet Patient Problems: Problems Problem Status Onset Primary localized osteoarthritis of left knee Acute Cellulitis and abscess of buttock Acute Diaphoresis Acute Elevated troponin Acute MRSA (methicillin resistant Staphylococcus aureus) Acute 10/30/15
--- NOTE | 2017-09-12 18:51 | GDS ---
[f rep st] DISCHARGE SUMMARY ADMISSION DIAGNOSIS: Left knee osteoarthritis. DISCHARGE DIAGNOSIS: Left knee osteoarthritis. PROCEDURE: Left total knee arthroplasty, robot assisted. VTE PROPHYLAXIS: Recommend aspirin 81 mg twice daily for 4 weeks. PLAN: Follow up as scheduled with Dr. Stevens's office in 3 weeks. /[id number]/MODL
== END 2017-09-12 13:14 | disposition home or self-care (01) | DRG 470 ==
LOC: F3N 09:33 → OBSVTOIN 12:45 → F3N 14:04
PROVIDERS: ADMIT Orthopaedic Surgery; ATTEND Orthopaedic Surgery
PROC: 0SRD0JZ Replacement of Left Knee Joint with Synthetic Substitute, Open Approach (ICD-10-PCS; principal; 2017-09-10 11:15)
PROC: 8E0Y0CZ Robotic Assisted Procedure of Lower Extremity, Open Approach (ICD-10-PCS; principal; 2017-09-10 11:15)
PROC: 8E0YXBZ Computer Assisted Procedure of Lower Extremity (ICD-10-PCS; principal; 2017-09-10 11:15)
DX: M17.12 Unilateral primary osteoarthritis, left knee (principal); I49.3 Ventricular premature depolarization; I10 Essential (primary) hypertension
CPT/HCPCS: 97110-GP; 97116-GP; 97161-GP; G8978-GP-CI; G8978-GP-CJ; G8979-GP-CI; G8980-GP-CI; J0171; J0690; J1100; J1170; J1885; J2250; J2270; J2405; J2704; J2795; J3010; J3370

== ENCOUNTER 2017-12-28 | Emergency (ER) | payer OTHER, MEDICAID | END 2017-12-28 16:40 | disposition home or self-care (01) ==

== ENCOUNTER 2018-01-08 12:38 | Emergency (ER) | payer OTHER, MEDICAID ==
[2018-01-08 12:47] VITALS: BP 111/67
--- NOTE | 2018-01-08 12:48 | EDPHY ---
H & P Stated Complaint: right lawson wound for 1.5 weeks, treated with abx, here fore re -eval Time Seen by Provider: 01/08/18 12:41 HPI/ROS: Chief Complaint: Right lawson wound HPI: 57-year-old male sustained a wound to his right lawson after scratching mid skin about about a week and half ago. He was seen at the [facility] Emergency Department started on Bactrim. He initially had about 3 cm of redness around the site. This is gone away. He still has an open wound which is not draining. No fevers. He was going to follow up with primary care physician [place] but unfortunately missed that appointment. Denies any fevers or chills. No pain. Does have a history of ankylosing spondylitis and is on chronic immunosuppression. ROS: 10 point Review of Systems is negative except as noted in the HPI. PMH: Ankles and spondylitis Social History: No smoking, no alcohol, no recreational drug use Family History: non-contributory Physical Exam: General: Awake, alert, no acute distress Right leg: Patient has a very small ulcerated lesion on his right lawson,. Ulcerations about 3 mm. This is on a base of about 1.2 cm. There is no erythema. There is no discharge. There is visible granulation tissue. Is not warm to the touch. Skin: No rash - Personal History Tetanus Vaccine Date: 10/27/15 - Medical/Surgical History Hx Asthma: No Hx Chronic Respiratory Disease: No Hx Diabetes: No Hx Cardiac Disease: Yes Hx Renal Disease: No Hx Cirrhosis: No Hx Alcoholism: No Hx HIV/AIDS: No Hx Splenectomy or Spleen Trauma: No Other PMH: NEUROPATHY, L5-S1 FUSION, KNEE ARTHRITIS, HTN, ANKELOSING SPONDOLITIS, IRREG HEARTBEAT, MRSA RIGHT BUTTOCK OCTOBER 2015,. Chronic pain, HUNTER - Social History Smoking Status: Never smoked Constitutional: Initial Vital Signs Temperature (C) 36.5 C 01/08/18 12:44 Heart Rate 55 L 01/08/18 12:44 Respiratory Rate 18 01/08/18 12:44 Blood Pressure 111/67 01/08/18 12:44 O2 Sat (%) 95 01/08/18 12:44 O2 Delivery Mode Room Air Allergies/Adverse Reactions: aluminum [Aluminum] Allergy (Intermediate, Verified 01/08/18 12:43) Other-Enter Comments latex [Latex] Allergy (Mild, Verified 01/08/18 12:43) Itching Sulfa (Sulfonamide Antibiotics) Allergy (Unknown, Verified 01/08/18 12:43) Unknown AMMONIA Allergy (Intermediate, Uncoded 01/08/18 12:43) Other-Enter Comments DUST Allergy (Intermediate, Uncoded 01/08/18 12:43) Other-Enter Comments Home Medications: Medication Instructions Recorded Fluticasone Nasal [Flonase Nasal 1 sprays [place] HS 12/05/15 [place]] Gabapentin [Neurontin 300 MG (*)] 300 mg PO DAILY@15 12/05/15 fentaNYL [Duragesic 12 MCG Patch 12 mcg TD Q2D@12 12/05/15 (*)] Atorvastatin Calcium [Lipitor 10 10 mg PO HS 05/22/16 mg (*)] DULoxetine [Cymbalta 60 MG (*)] 60 mg PO DAILY 05/22/16 Gabapentin [Neurontin 300 MG (*)] 600 mg PO BID 05/22/16 Multivitamins [Multivitamin (*)] 1 each PO DAILY 05/22/16 tiZANidine HCL [Zanaflex 2MG (*)] 4 mg PO HS 05/22/16 Cosentyx Pen 1 ea SQ Q30D 08/26/17 Metoprolol Tartrate [Lopressor 50 50 mg PO BID 08/26/17 mg (*)] Docusate Sodium [Colace 100 MG (*)] 100 mg PO DAILY PRN 08/27/17 Herbals/Supplements -Info Only 1 ea PO DAILY 08/27/17 Lidocaine 5% [Lidocaine 5% Oint] 1 lisa TP DAILY PRN 08/27/17 Losartan Potassium [Cozaar 50 mg 50 mg PO DAILY 08/27/17 (*)] Melatonin 10 mg PO DAILY 08/27/17 clonIDINE [Catapres (*)] 0.1 mg PO DAILY 08/27/17 fentaNYL [Duragesic 25 MCG Patch 25 mcg TD Q2D@12 08/27/17 (*)] oxyCODONE IR [Oxycodone Ir (*)] 20 mg PO Q4HRS PRN 08/27/17 Acetaminophen [Tylenol 325mg (*)] 650 mg PO Q6HRS tab 09/12/17 Aspirin [Aspirin 81mg (*)] 81 mg PO BID tab.chew 05/04/18 HYDROmorphone HCL [Dilaudid 4 mg 4 mg PO Q4HRS PRN tab 09/12/17 (*)] Polyethylene Glycol 3350 [Miralax 17 gm PO DAILY PRN pkt 09/12/17 17 gm (*)] Sennosides/Docusate Sodium 1 - 2 tab PO BID tab 09/12/17 [Senokot-S] Sulfamethox/Tmp 800/160 mg 1 tab PO BID #14 tab 12/28/17 [Bactrim Ds] Medical Decision Making ED Course/Re-evaluation: Patient has healing wound. No signs of infection. There is good granulation tissue. He will follow up with his doctor for any concerns. Departure - Departure Disposition: Home, Routine, Self-Care Clinical Impression: Healing wound Condition: Good Instructions: Acute Wounds (ED) Additional Instructions: Keep the area clean and dry. Return to the emergency department for increasing redness, fevers, worse discharge from the wound, or any other concerns. Referrals: Isai Cedillo DO [Primary Care Provider] - As per Instructions
== END 2018-01-08 12:51 | disposition home or self-care (01) ==
LOC: CED 12:38
DX: S81.801D Unspecified open wound, right lower leg, subsequent encounter (principal)

== ENCOUNTER → 2018-04-16 | Outpatient (CLI) | payer OTHER, MEDICAID | LOC: BHFA 14:00 | PROVIDERS: ATTEND Internal Medicine Interventional Cardiology | DX: I42.9 Cardiomyopathy, unspecified (principal) ==

== ENCOUNTER 2018-04-29 07:11 | Inpatient (IN) | payer OTHER, MEDICAID ==
[2018-04-29] MEDS ORDERED: ACETAMINOPHEN 325 MG TAB PO ONE (07:24)
[2018-04-29] MEDS ORDERED: ceFAZolin 2 GM/DEXTROSE 100 ML IV ONE (07:24)
[2018-04-29] MEDS ORDERED: DEXAMETHASONE 4 MG/ML VIAL IVP ONE (07:24)
[2018-04-29] MEDS ORDERED: FAMOTIDINE 20 MG TAB PO ONE (07:24)
[2018-04-29] MEDS ORDERED: LR 1,000 ML IV ONE (07:26)
[2018-04-29] MEDS ORDERED: ONDANSETRON 4 MG/2 ML VIAL ONE (07:44)
[2018-04-29] MEDS ORDERED: LIDOCAINE 2% 5 ML SDV ONE (07:44)
[2018-04-29] MEDS ORDERED: ROPIVACAINE HCL 150 MG/30 ML INJ ONE (07:44)
[2018-04-29] MEDS ORDERED: PROPOFOL/EMULSION 500 MG/50 ML BOTTLE IV ONE (07:44)
[2018-04-29] MEDS ORDERED: fentaNYL 100 MCG/2 ML INJ ONE (07:44)
[2018-04-29] MEDS ORDERED: KETAMINE 200 MG/20 ML VIAL ONE (07:44)
[2018-04-29] MEDS ORDERED: BUPIVACAINE/DEXTROSE 7.5MG/ML 2 ML SPINAL AMP SP ONE (07:44)
[2018-04-29] MEDS ORDERED: DEXAMETHASONE 4 MG/ML VIAL ONE (07:44)
[2018-04-29] MEDS ORDERED: MIDAZOLAM 2 MG/2 ML VIAL IVP ONE (08:42)
[2018-04-29] MEDS ORDERED: MIDAZOLAM 2 MG/2 ML VIAL ONE (08:42)
--- NOTE | 2018-04-29 08:42 | PDANEPAE ---
ANE History of Present Illness R knee pain, RTKA ANE Past Medical History - Cardiovascular History Hx Hypertension: Yes Hx Arrhythmias: No Hx Chest Pain: No Hx Coronary Artery / Peripheral Vascular Disease: No Hx CHF / Valvular Disease: No Hx Palpitations: No Cardiovascular History Comment: Ablation for PVC's ~ via [facility]. continues to have PVCs-less. 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 - Pulmonary History Hx COPD: No Hx Asthma/Reactive Airway Disease: No Hx Recent Upper Respiratory Infection: No Hx Oxygen in Use at Home: No Hx Sleep Apnea: Yes Sleep Apnea Screening Result - Last Documented: Positive Pulmonary History Comment: HUNTER w/CPAP - Neurologic History Hx Cerebrovascular Accident: No Hx Seizures: No Hx Dementia: No - Endocrine History Hx Diabetes: No - Renal History Hx Renal Disorders: No - Liver History Hx Hepatic Disorders: No - Neurological & Psychiatric Hx Hx Neurological and Psychiatric Disorders: Yes Neurological / Psychiatric History Comment: low back pain due to ankylosing spondylitis- SI joint pain-Lower R. - Cancer History Hx Cancer: No - Congenital Disorder History Hx Congenital Disorders: No - GI History Hx Gastrointestinal Disorders: No Gastrointestinal History Comment: prone to constipation w/opioids - Other Health History Other Health History: OA,RA, Ankylosing spondylitis-affects low back, knees, wrists. CHRONIC PAIN MGT - Chronic Pain History Chronic Pain: Yes (LOW BACK & R KNEE) - Surgical History Prior Surgeries: CARDIAC ABLATION FOR PVCs. L TKA. L5/S1 lumbar fusion '. bilat knee scopes ANE Review of Systems Review of Systems: - Exercise capacity METS (RN): 4 METS ANE Patient History - Allergies Allergies/Adverse Reactions: aluminum [Aluminum] Allergy (Intermediate, Verified 01/08/18 12:43) Other-Enter Comments latex [Latex] Allergy (Mild, Verified 01/08/18 12:43) Itching AMMONIA Allergy (Intermediate, Uncoded 01/08/18 12:43) Other-Enter Comments DUST Allergy (Intermediate, Uncoded 01/08/18 12:43) Other-Enter Comments - Home Medications Home Medications: Aspirin [Aspirin 81mg (*)] 81 mg PO HS 04/17/18 [Last Taken 04/21/18] Atorvastatin Calcium [Lipitor 10 mg (*)] 10 mg PO DAILY 04/17/18 [Last Taken ] Docusate Sodium [Colace 100 MG (*)] 100 mg PO HS 04/17/18 [Last Taken 04/28/18] Duloxetine HCl [Cymbalta] 60 mg PO DAILY 04/17/18 [Last Taken 04/29/18 06:00] Fluticasone Nasal [Flonase Nasal [place] (RX)] 1 sprays NASAL BID 04/17/18 [Last Taken 04/29/18 06:00] Gabapentin [Neurontin 300 MG (*)] 300 mg PO DAILY@1500 PRN 04/17/18 [Last Taken 04/29/18 05:30] Herbals/Supplements -Info Only 1 dose PO AD 04/17/18 [Last Taken 04/21/18] Lidocaine 5% [Lidocaine 5% Oint] 1 lisa TP TID PRN 04/17/18 [Last Taken 04/26/18] Losartan Potassium [Cozaar 50 mg (*)] 50 mg PO DAILY 04/17/18 [Last Taken ] Melatonin [Melatonin 5 mg] 10 mg PO HS 04/17/18 [Last Taken 04/21/18] Metoprolol Tartrate [Lopressor 50 mg (*)] 50 mg PO BID 04/17/18 [Last Taken 06:00] Multivitamins [Multivitamin (*)] 1 each PO HS 04/17/18 [Last Taken 04/21/18] Testosterone [Androgel] 1.25 gm TD DAILY 04/17/18 [Last Taken 04/21/18] Tizanidine HCl [Zanaflex] 4 mg PO HS 04/17/18 [Last Taken 04/28/18] celeCOXIB [Celebrex (*)] 200 mg PO DAILY 04/17/18 [Last Taken 04/29/18 06:00] clonIDINE [Catapres (*)] 0.1 mg PO BID 04/17/18 [Last Taken 1 Week Ago ~04/22/18 ] fentaNYL [Duragesic 12 MCG Patch (*)] 12 mcg TD Q2D 04/17/18 [Last Taken 06:00] fentaNYL [Duragesic 25 MCG Patch (*)] 25 mcg TD Q2D 04/17/18 [Last Taken ] oxyCODONE IR [Oxycodone Ir (*)] 15 - 30 mg PO 5XD PRN 04/17/18 [Last Taken 04/29 07:00] - NPO status NPO Since - Liquids (Date): 04/29/18 NPO Since - Liquids (Time): 06:30 NPO Since - Solids (Date): 04/28/18 NPO Since - Solids (Time): 22:00 - Smoking Hx Smoking Status: Never smoked - Family Anes Hx Family Hx Anesthesia Complications: NEG ANE Labs/Vital Signs - Vital Signs Blood Pressure: 121/88 Heart Rate: 48 Respiratory Rate: 18 O2 Sat (%): 93 Height: 194.31 cm Weight: 139.253 kg ANE Physical Exam - Airway Neck exam: decreased ROM Mallampati Score: Class 4 Mouth exam: normal dental/mouth exam - Pulmonary Pulmonary: no respiratory distress - Cardiovascular Cardiovascular: regular rate and rhythym - ASA Status ASA Status: III ANE Anesthesia Plan Anesthesia Plan: general endotracheal anesthesia, GA with mask, spinal Total IV Anesthesia: No
[2018-04-29] MEDS ORDERED: diphenhydrAMINE 25 MG CAP PO PRN (09:15)
[2018-04-29] MEDS ORDERED: ONDANSETRON DISINTEGRATING 4 MG TAB PO PRN (09:15)
[2018-04-29] MEDS ORDERED: BISACODYL 10 MG SUPP PR PRN (09:15)
[2018-04-29] MEDS ORDERED: TEMAZEPAM 15 MG CAP PO PRN (09:15)
[2018-04-29] MEDS ORDERED: METOCLOPRAMIDE 10 MG/2 ML VIAL IVP PRN (09:15)
[2018-04-29] MEDS ORDERED: PROMETHAZINE HCL 25 MG SUPPR PR PRN (09:15)
[2018-04-29] MEDS ORDERED: DIPHENOXYLATE/ATROPINE LOMOTIL 1 TAB PO PRN (09:15)
[2018-04-29] MEDS ORDERED: ONDANSETRON 4 MG/2 ML VIAL IVP PRN (09:15)
[2018-04-29] MEDS ORDERED: MAGNESIUM HYDROXIDE 30 ML UDCUP PO PRN (09:15)
[2018-04-29] MEDS ORDERED: PROMETHAZINE HCL 25 MG/ML INJ IVP PRN (09:15)
[2018-04-29] MEDS ORDERED: POLYETHYLENE GLYCOL 3350 17 GM PKT PO PRN (09:15)
[2018-04-29] MEDS ORDERED: CYCLOBENZAPRINE 10 MG TAB PO PRN (09:15)
[2018-04-29] MEDS ORDERED: LACTULOSE 20 GM/30 ML UDCUP PO PRN (09:15)
[2018-04-29] MEDS ORDERED: LR 1,000 ML IV SCH (09:30)
[2018-04-29] MEDS ORDERED: NALOXONE HCL 0.4 MG/ML INJ IVP PRN (10:02)
[2018-04-29] MEDS ORDERED: HYDROmorphONE/DILAUDID 2 MG/ML INJ IVP PRN (10:02)
[2018-04-29] MEDS ORDERED: fentaNYL 100 MCG/2 ML INJ IVP PRN (10:02)
[2018-04-29] MEDS ORDERED: oxyCODONE IR 5 MG TAB PO PRN (10:02)
[2018-04-29] MEDS ORDERED: ACETAMINOPHEN 500 MG TAB PO PRN (10:02)
[2018-04-29] MEDS ORDERED: MEPERIDINE 25 MG/0.5 ML AMP IVP PRN (10:02)
[2018-04-29] MEDS ORDERED: PROPOFOL 200 MG/20 ML VIAL ONE (10:08)
--- NOTE | 2018-04-29 10:41 | POSTOPPROG ---
Post Op Note Date of Operation: 04/29/18 Surgeon: Leda Stevens C Winforms Developer: jeovanny RODRIGUEZ Anesthesiologist: dr. jones Anesthesia: Spinal, Other (Specify) (adductor canal block) Pre-op Diagnosis: Right knee OA Post-op Diagnosis: same Indication: right knee pain Procedure: R TKA robot assisted Findings: severe knee OA Inf/Abcess present in the surg proc area at time of surgery?: No EBL: 50-100
--- NOTE | 2018-04-29 10:55 | POSTANESTH ---
Post Anesthetic Evaluation Cardiovascular Status: Normal, Stable Respiratory Status: Normal, Stable Level of Consciousness/Mental Status: Can Participate in Eval Pain Control: Adequate, Prn Tx Ordered Nausea/Vomiting Control: Adequate, Prn Tx Ordered Complications Possibly Related to Anesthesia: None Noted (moving bilat lower extrem a little, AC block w/o comp)
--- NOTE | 2018-04-29 11:01 | PDMN ---
Medical Necessity Medical necessity[place] [facility]thro[place], Total: 57 yo s/p R TKA. Meets IP status for concerning issues with post-op pain management as pt is on high doses of pre-op pain meds. Also, concerns for pt. living alone. Pt w/ hx HTN, PVCs, [place] [facility] following, HUNTER w/ CPAP, chronic pain w/ opioid management, ASA status III.
[2018-04-29] MEDS: ACETAMINOPHEN 325 MG TAB PO SCH ×2 (13:56→18:35)
[2018-04-29] MEDS ORDERED: GABAPENTIN 300 MG CAP PO PRN (15:00)
[2018-04-29] MEDS: ceFAZolin 2 GM/DEXTROSE 100 ML IV SCH (16:54)
[2018-04-29] MEDS: oxyCODONE IR 5 MG TAB PO PRN (18:33)
[2018-04-29] MEDS: ASPIRIN 81 MG CHEWABLE TAB PO SCH (20:54)
[2018-04-29] MEDS: METOPROLOL TARTRATE 50 MG TAB PO SCH (20:55)
[2018-04-29] MEDS: SENNOSIDES/DOCUSATE SODIUM TAB PO SCH (20:56)
[2018-04-29] MEDS: FAMOTIDINE 20 MG TAB PO SCH (20:56)
[2018-04-29] MEDS: FLUTICASONE NASAL 120 SPRAYS/16 GM MDI EACHNARE SCH (21:01)
[2018-04-30] MEDS: ceFAZolin 2 GM/DEXTROSE 100 ML IV SCH (00:50)
[2018-04-30] MEDS: ACETAMINOPHEN 325 MG TAB PO SCH ×3 (00:50→12:29)
[2018-04-30] MEDS: oxyCODONE IR 5 MG TAB PO PRN ×3 (00:51→12:29)
[2018-04-30] MEDS: METOPROLOL TARTRATE 50 MG TAB PO SCH (07:47)
[2018-04-30] MEDS: ASPIRIN 81 MG CHEWABLE TAB PO SCH (08:33)
[2018-04-30] MEDS: FAMOTIDINE 20 MG TAB PO SCH (08:34)
[2018-04-30] MEDS: SENNOSIDES/DOCUSATE SODIUM TAB PO SCH (08:34)
[2018-04-30] MEDS: FLUTICASONE NASAL 120 SPRAYS/16 GM MDI EACHNARE SCH (08:37)
[2018-04-30] MEDS ORDERED: ATORVASTATIN CALCIUM 10 MG TAB PO SCH (09:00)
[2018-04-30] MEDS ORDERED: fentaNYL 25 MCG PATCH TD SCH (09:00)
[2018-04-30] MEDS ORDERED: DULoxetine 60 MG CAP PO SCH (09:00)
[2018-04-30] MEDS ORDERED: LOSARTAN POTASSIUM 50 MG TAB PO SCH (09:00)
--- NOTE | 2018-04-30 09:14 | ASMTLACE ---
LACE Length of stay for Answers: Less than 1 day current admission Acuity / Level of Answers: Yes Care: Did the patient have an inpatient admission? Comorbidities - select Answers: Opioid dependence all that apply / Chronic pain Other Notes: HTN # of Emergency department Answers: 1-2 visits in the last 6 months Score: 9 Date Signed: 04/30/2018 09:14 AM Electronically Signed By:Hannah Jason RN
--- NOTE | 2018-04-30 09:19 | ASDISCHSUM ---
Discharge Information Plan Status:Home with No Needs Medically Cleared to Leave:04/29/2018 Discharge Date:04/29/2018 CM D/C Disposition:Home, Routine, Self-Care ADT D/C Disposition:Home, Routine, Self-Care Projected Discharge Date:04/29/2018 Transportation at D/C:Family Discharge Delay Reason: Follow-Up Date:04/29/2018 Discharge Slot: Final Diagnosis: Placement Information Patient Contact Information Contact Name:DAYSI Relationship:Joleen Address: Work Phone: City: [facility] Phone: State/[place] Code: Email: Financial Information Financial Class:Medicare Primary Plan Desc:MEDICARE INPATIENT Primary Plan Number:[id number] Secondary Plan Desc:MEDICAID [place] Secondary Plan Number:[id number] Assessment Information LACE LACE Length of stay for Answers: Less than 1 day current admission Acuity / Level of Answers: Yes Care: Did the patient have an inpatient admission? Comorbidities - select Answers: Opioid dependence all that apply / Chronic pain Other Notes: HTN # of Emergency department Answers: 1-2 visits in the last 6 months Score: 9 Date Signed: 04/30/2018 09:14 AM Electronically Signed By:Hannah Jason RN Case Management Discharge Plan Note Case Management Discharge Discharge Order Complete? Answers: Yes Patient to Obtain Answers: via Family Medications Transportation Arranged Answers: Family/Friends Discharge Comments Notes: 04/30/2018 Case Managmeent Note Met w/pt to discuss d/c needs. Pt daughter Ana lives with pt and is attending school locally. Ana can be reached at [phone] Amanda Tejada [phone] is staying with pt for the next 14 days. Rachael [phone]. PT is recommending out patient rehab. Pt plans for children to transport to therapy or use Uber or Lyft. There are no difficulties with groceries. Case Management d/c poc: home with family support. Date Signed: 04/30/2018 09:18 AM Electronically Signed By:Hannah Jason RN Intervention Information Intervention Type:*Incorrect Registration Date of Service:04/29/2018 09:35 AM Patient Type:Observation Staff Member:Noris Galarza Hours: Discipline: Severity: Comment:
[2018-04-30 11:20] VITALS: BP 115/62
--- NOTE | 2018-04-30 13:06 | SOAPPROG ---
SOAP Progress Note Assessment/Plan: Assessment: Patient is doing well POD 1 s/p R TKA Pain management: pain is well controlled on oral pain meds. VTE ppx: recommend aspirin 81 mg BID for 4 weeks, cont WILLEM and SCDs Anemia: level is expected initially postop. Asymptomatic. Continue to monitor D/c planning: Patient has done better than anticipated and would like to be discharged to home today. Patient must be released from PT before discharge to home. hyperkalemia: recommend holding losartan with potassium, follow up tomorrow with PCP Plan: 04/30/18 13:03 04/30/18 13:46 Subjective: patient is doing well, mild pain, denies SOB, chest pain and N/V Objective: Vital Signs Temp Pulse Resp BP Pulse Ox 36.6 C 43 L 16 115/62 98 04/30/18 11:19 04/30/18 11:19 04/30/18 11:19 04/30/18 11:19 04/30/18 11:19 Laboratory Results 04/30/18 04:49 04/30/18 04:49 04/29/18 04/30/18 05/01/18 05:59 05:59 05:59 Intake Total 4960 Output Total 2350 Balance 2610 RLE: incision dressing is clean and dry, NVI, +pf/df ICD10 Worksheet Patient Problems: Problems Problem Status Onset Cellulitis and abscess of buttock Acute Diaphoresis Acute Elevated troponin Acute MRSA (methicillin resistant Staphylococcus aureus) Acute 10/30/15 Primary localized osteoarthritis of left knee Acute Primary localized osteoarthritis of right knee Acute
[2018-05-01] MEDS ORDERED: fentaNYL 12 MCG PATCH TD SCH (09:00)
--- NOTE | 2018-05-03 20:54 | GOP ---
DATE OF OPERATION: 04/29/2018 SURGEON: Marck Stevens MD RESPIRATORY THERAPY TECHNICIAN: VANIA Alonso ANESTHESIA: Spinal. PREOPERATIVE DIAGNOSIS: Right knee osteoarthritis. POSTOPERATIVE DIAGNOSIS: Right knee osteoarthritis. PROCEDURE PERFORMED: Right total knee arthroplasty with computer navigation, robotic assist. FINDINGS: ESTIMATED BLOOD LOSS: 30 cc. INDICATIONS: The patient is a 57-year-old male with severe and progressive pain and deformity of the right knee unresponsive to conservative care. The risks and benefits of surgical intervention were explained in detail. DESCRIPTION OF PROCEDURE: The patient was brought to the operative room and placed on the table in t he supine position. Spinal anesthesia was induced without difficulty. A pneumatic tourniquet was appl ied about the right proximal thigh, and the leg was prepped and draped in a sterile fashion. The leg tse was applied. After exsanguination by elevation the tourniquet was inflated to 250 mmHg. Incision was made anterior medial from the tibial tuberosity to a point 2 cm proximal to the superior pole of the patella. Medial parapatellar arthrotomy was carried out from the superior pole of the pa tella and posteriorly in line with the fibers of the Type II VMO. The medial collateral ligament was elevated and the infrapatellar fat pad was resected. The patella was everted and the articular surface was excised. A 40 mm patellar button was placed. Attention was turned first to the distal aspect of the femur. After exposure of the femur, 2 half pi ns were placed for fixation of the femoral array. In a similar fashion, 2 pins were placed anteromed ial on the tibia for fixation of the tibial array. External land marking and registration of the hip center was performed without difficulty. Internal femoral and tibial registration was carried out w ithout difficulty and the femoral and tibial checkpoints were placed and verified for accuracy. Attention was turned to the femur. The foot print for the size 6 femoral component was cut with the saw using the [employer] robotic system and verified for accuracy against the CT based plan. In a similar f ashion, the saw was used to cut the footprint for the size 7 tibial component using the [employer] system an d verified for accuracy against the CT based plan. The tibial articular surface was excised without d ifficulty, followed by the intercondylar box cut. The knee was extended and the remnants of the medial and lateral meniscus were excised. The posterior capsule was injected with ropivacaine, epinephrine and Toradol. A size 7 tibial tray was positioned . Trial reduction was then carried out. There was excellent range of motion, alignment, and stability using the 7 x 9 mm polyethylene. All trials were then removed. The joint was thoroughly irrigated and carefully dried. The press-fit c omponents were implanted. The permanent 7 x 9 mm polyethylene was placed without difficulty. The tourniquet was deflated and all bleeders were coagulated. The wound was thoroughly irrigated and closed using interrupted sutures of 2-0 Vicryl for the joint capsule. The subcu was closed with 3-0 V icryl and the skin with 4-0 Monocryl. Dermabond and Steri-Strips were applied followed by a compress ladi dressing. The patient was then moved from the operating room to the recovery room in good conditi on, having tolerated the procedure well. PATHOLOGY: Severe medial and patellofemoral osteoarthritis. /[id number]/MODL
== END 2018-04-30 12:54 | disposition home or self-care (01) | DRG 470 ==
LOC: F3N 07:11 → OBSVTOIN 09:20 → F3N 12:48
PROVIDERS: ADMIT Orthopaedic Surgery; ATTEND Orthopaedic Surgery
PROC: 0SRC0JA Replacement of Right Knee Joint with Synthetic Substitute, Uncemented, Open Approach (ICD-10-PCS; principal; 2018-04-29 09:00)
PROC: 8E0YXBZ Computer Assisted Procedure of Lower Extremity (ICD-10-PCS; principal; 2018-04-29 09:00)
PROC: 8E0Y0CZ Robotic Assisted Procedure of Lower Extremity, Open Approach (ICD-10-PCS; principal; 2018-04-29 09:00)
DX: M17.11 Unilateral primary osteoarthritis, right knee (principal); I10 Essential (primary) hypertension; G47.33 Obstructive sleep apnea (adult) (pediatric); G89.29 Other chronic pain; Z96.652 Presence of left artificial knee joint
CPT/HCPCS: 97116-GP; 97161-GP; G8978-GP-CK; G8979-GP-CJ; J0171; J0690; J1100; J1885; J2250; J2405; J2704; J2795; J3010; J3370

== ENCOUNTER → 2018-06-20 | Outpatient (CLI) | payer OTHER, MEDICAID | LOC: FIMAGING 11:07 | PROVIDERS: ATTEND Orthopaedic Surgery Orthopaedic Surgery of the Spine | DX: M51.36 Other intervertebral disc degeneration, lumbar region (principal); M99.73 Connective tissue and disc stenosis of intervertebral foramina of lumbar region; M48.061 Spinal stenosis, lumbar region without neurogenic claudication; Z98.1 Arthrodesis status ==